=== PATIENT | male | born 1955 | race Caucasian/White ===

== ENCOUNTER 2023-07-02 07:00 | Day surgery (SDC) | payer OTHER ==
[2023-06-28 15:08] LABS: Absolute Lymphocytes (CBC) 2.7 K/uL (0.7-4.9); Hematocrit 43.6 % (39.6-49.0); Lymphocytes % 37.9 % (15.3-44.8); MCV 81.4 fL (80-100); MPV 7.3 fL (7.6-11.3); Platelets 222 thou/uL (152-406); RBC Red Blood Cell Count 5.35 M/uL (4.33-5.43)
[2023-06-28 15:13] LABS: Protime INR 1.03
--- NOTE | 2023-06-28 15:58 | RAD REPORT ---
EXAM DESCRIPTION: RAD - Chest Pa And Lat (2 Views) - 06/28/2023 2:59 pm CLINICAL HISTORY: pre op for stucco laborer. Hypertension COMPARISON: No comparisons TECHNIQUE: PA and lateral views of the chest were obtained. FINDINGS: The lungs are clear. Heart size is normal and central vasculature is within normal limits. No pleural effusion or pneumothorax seen. No acute bony finding noted. IMPRESSION: No acute cardiopulmonary process.
--- NOTE | 2023-07-01 11:03 | EKG ---
Test Date: 2023-06-28 Test Time: 15:45:07 Director Search: TOM MEASUREMENT RESULTS: Intervals: Rate: 61 CA: 236 QRSD: 88 QT: 404 QTc: 406 [place]: P: 59 CA: 236 QRS: -41 T: 29 INTERPRETIVE STATEMENTS: Sinus rhythm with 1st degree AV block with occasional premature ventricular complexes Left axis deviation Cannot rule out Anterior infarct, age undetermined Abnormal ECG No previous ECG available for comparison Electronically Signed On 07-01-23 10:59:01 [employer] by Farhat Meng
[2023-07-02] MEDS ORDERED: NA CHLORIDE 0.9% 500 ML ONE (07:08)
[2023-07-02] MEDS ORDERED: HEPA 1000U/500MLS 2,000 UNIT/1,000 ML BAG IV ONE (07:10)
[2023-07-02] MEDS ORDERED: LIDOCAINE 1% 20 ML MDV ONE (07:10)
[2023-07-02] MEDS ORDERED: FENTANYL CITR 100 MCG/2 ML ONE (07:20)
[2023-07-02] MEDS ORDERED: MIDAZOLAM HCL 2 MG/2 ML INJ ONE (07:20)
[2023-07-02] MEDS ORDERED: VERAPAMIL HCL 10 MG/4 ML VIAL IV ONE (07:20)
[2023-07-02] MEDS ORDERED: ATROPINE SULF 1 MG/10 ML SYR IV ONE (07:21)
[2023-07-02] MEDS ORDERED: HEPARIN 5000 UNIT/ML 1 ML VIAL ONE (07:21)
[2023-07-02] MEDS ORDERED: HEPARIN 10,000 UNIT/10 ML VIAL IV ONE (07:21)
[2023-07-02] MEDS ORDERED: CLOPIDOGREL 75 MG TABLET ONE (07:22)
[2023-07-02] MEDS ORDERED: ASPIRIN 325 MG TAB ONE (07:22)
[2023-07-02] MEDS ORDERED: TICAGRELOR 90 MG TABLET PO ONE (07:40)
[2023-07-02 09:53] VITALS: O2SAT 97
[2023-07-02 10:50] VITALS: BP 125/94
== END 2023-07-02 10:05 | disposition home or self-care (01) ==
LOC: CCL 07:00
PROVIDERS: ATTEND Internal Medicine
DX: I35.0 Nonrheumatic aortic (valve) stenosis (principal); I10 Essential (primary) hypertension; I71.21 Aneurysm of the ascending aorta, without rupture; F17.220 Nicotine dependence, chewing tobacco, uncomplicated; Z79.82 Long term (current) use of aspirin; Z79.899 Other long term (current) drug therapy
CPT/HCPCS: 93005; 85025; 80048; 36415; 83721; 85610; 85730; 71046; 93454; 76937; C1893; Q9966; J1644; J2001; J2250; J3010; J7040; 99152; 99153; J0461